=== PATIENT | male | born 1970 | race Two or more races ===

== ENCOUNTER 2016-08-18 22:57 | Emergency (ER) | payer SELFPAY ==
[2016-08-18] MEDS ORDERED: NS 0.9% 1000 ML* 2,000 ML IV ONE (23:43)
[2016-08-18] MEDS ORDERED: Ketorolac INJ* 30 MG/ML 1 ML VIAL IV ONE (23:43)
[2016-08-18 23:54] LABS: Hematocrit 45 % (42-52); Mean Corpuscular HGB Conc 33 g/dl (31-36); Mean Corpuscular Hemoglobin 31 pg (27-31); Mean Corpuscular Volume 94 fL (80-94); Mean Platelet Volume 9 um3 (7.4-10.4); Red Blood Count 4.79 10^6/ul (4.0-5.4); Red Cell Distribution Width 13 % (10.5-15); White Blood Count 18.1 10^3/ul (3.5-10.8)
[2016-08-19 00:05] LABS: ALT 26 U/L (7-52); Albumin 4.1 g/dL (3.2-5.2); Alkaline Phosphatase 65 U/L (34-104); Blood Urea Nitrogen 14 mg/dL (6-24); C Reactive Protein 3.17 mg/L (< 5.00); CO2 Carbon Dioxide 24 mmol/L (22-32); Calcium 9.3 mg/dL (8.6-10.3); Chloride 100 mmol/L (101-111); Globulin 3.2 g/dL (2-4); Glucose 147 mg/dL (70-100); Sodium 133 mmol/L (133-145); Total Protein 7.3 g/dL (6.4-8.9)
--- NOTE | 2016-08-19 00:50 | ED ---
Back Pain - HPI Summary HPI Summary: Patient is [place] he presents with a friend to interpret for him. He began to have severe left flank pain tonight at 1830. He has a history of kidney stones. He denies fever, blood in his urine or trauma. Yesterday he felt completely normal. He feels nauseous and has vomited from the pain. He denies abdominal pain, but has had pain down into his left groin intermittently. No pain with urination. He is extremely uncomfortable and weeping during exam. - History of Current Complaint Chief Complaint: EDFlankPain Stated Complaint: LEFT FLANK PAIN Time Seen by Provider: 08/18/16 23:21 Hx Obtained From: Building Carpenter Helper Onset/Duration: Sudden Onset Onset/Duration: Started Hours Ago Timing: Constant Back Pain Location: Is Discrete @ - left flank and left groin Severity Initially: Severe Severity Currently: Severe Pain Intensity: 9 Character: Sharp, Aching Aggravating Symptom(s): Movement Alleviating Symptom(s): Nothing Associated Signs And Symptoms: Positive: Flank Pain Related History: Similar Episode Dx As - Allergies/Home Medications Allergies/Adverse Reactions: Allergies Allergy/AdvReac Type Severity Reaction Status Date / Time No Known Allergies Allergy Verified 08/18/16 23:18 PMH/Surg Hx/FS Hx/Imm Hx History: Reports: Hx Kidney Stones Infectious Disease History: No Infectious Disease History: Denies: Traveled Outside the [place] in Last 30 Days - Family History Known Family History: Positive: None - Social History Occupation: Employed Full-time Lives: With Family Alcohol Use: Rare Substance Use Type: Reports: None Smoking Status (MU): Never Smoked Tobacco Review of Systems Negative: Fever, Chills Negative: Abdominal Pain Positive: flank pain - left. Negative: hematuria, incontinence, pain, urgency All Other Systems Reviewed And Are Negative: Yes Physical Exam Triage Information Reviewed: Yes Vital Signs On Initial Exam: Initial Vitals Temp Pulse Resp BP Pulse Ox 98.5 F 84 18 128/78 100 08/18/16 23:00 08/18/16 23:00 08/18/16 23:00 08/18/16 23:00 08/18/16 23:00 Vital Signs Reviewed: Yes Appearance: Positive: Well-Appearing, Well-Nourished, Pain Distress Skin: Positive: Warm, Skin Color Reflects Adequate Perfusion, Dry, Soft Head/Face: Positive: Normal Head/Face Inspection Eyes: Positive: EOMI, DUSTY, Conjunctiva Clear ENT: Positive: Hearing grossly normal Respiratory/Lung Sounds: Positive: Clear to Auscultation, Breath Sounds Present Cardiovascular: Positive: RRR Abdomen Description: Positive: Nontender, Soft, CVA Tenderness (R) - mild, CVA Tenderness (L) Bowel Sounds: Positive: Present Male Genital Exam: Positive: normal genitalia Musculoskeletal: Positive: Strength/ROM Intact. Negative: Edema Left, Edema Right Neurological: Positive: Sensory/Motor Intact, Alert, Oriented to Person Place, Time, NV Bundle Intact Distally Psychiatric: Positive: Normal AVPU Assessment: Alert Diagnostics - Vital Signs Vital Signs Temp Pulse Resp BP Pulse Ox 08/18/16 23:00 98.5 F 84 18 128/78 100 - Laboratory Result Diagrams: 08/18/16 23:35 08/19/16 00:40 Lab Statement: Any lab studies that have been ordered have been reviewed, and results considered in the medical decision making process. - CT No standard instances CT Interpretation: Positive (See Comments) CT Interpretation Completed By: Radiologist - 0.2 cm proximal kidney stone with mild hydronephrosis Back Pain Course/Dx - Diagnoses Differential Diagnosis/HQI/PQRI: Positive: Arthritis, Epidural Abscess, Herniated Disc, Renal Colic, Strain, Sprain Provider Diagnoses: Kidney calculi Discharge - Discharge Plan Condition: Stable Disposition: HOME Prescriptions: Ibuprofen TAB* [Motrin TAB* 600 MG] 600 mg PO Q6H PRN #40 tab PRN Reason: Pain Tamsulosin CAP* [Flomax CAP*] 0.4 mg PO DAILY #7 cap oxyCODONE/Acetamin 5/325 MG* [Percocet 5/325 TAB*] 1 tab PO Q4H PRN #12 tab MDD 6 PRN Reason: Pain Patient Education Materials: Kidney Stones (ED), How to Strain Your Urine (ED) Referrals: Shola Rhodes MD [Medical Doctor] - Additional Instructions: Please take the pain medicine as needed. The Flomax was not covered by the Urgent Rx form, so you can get if the pricing is reasonable. Please call Dr. Rhodes on Saturday for an appointment for evaluation. Use the strainer for your urine to see if your can capture the stone. Return to the emergency department if your symptoms worsen.
[2016-08-19] MEDS ORDERED: oxyCODONE/Acetamin 5/325 MG* TAB PO ONE (01:38)
[2016-08-19] MEDS ORDERED: Tamsulosin CAP* 0.4 MG PO ONE (01:38)
[2016-08-19 01:47] VITALS: BP 123/66
--- NOTE | 2016-08-19 07:26 | RAD ---
CLINICAL HISTORY: Left flank pain COMPARISON: None TECHNIQUE: Multiple contiguous axial CT scans were obtained of the abdomen and pelvis, without intravenous contrast enhancement. Coronal and sagittal multiplanar reformations are submitted for review. Oral contrast was not administered. FINDINGS: The study is limited by the lack of intravenous contrast. This limits evaluation of the solid organs and vasculature. LUNG BASES: The lung bases are clear. LIVER: The liver is normal in shape, size, contour, and attenuation. BILE DUCTS: There is no intrahepatic or extrahepatic biliary dilatation. GALLBLADDER: The gallbladder is normal, without pericholecystic inflammatory change. PANCREAS: The pancreas is normal, without mass or ductal dilatation. SPLEEN: Normal in size and appearance. UPPER GI TRACT: Evaluation of the gastrointestinal tract is limited by incomplete gastric distention. The upper GI tract is unremarkable. SMALL BOWEL AND MESENTERY: The small bowel is normal in contour, course, and caliber. There is no obstruction or dilatation. COLON: The colon is normal in contour, course, caliber. There is no pericolonic inflammatory change. ADRENALS: Normal bilaterally. KIDNEYS: There is a 0.6 cm calculus of the proximal left ureter at the UPJ with mild pelvic caliectasis. There is straightening of the perinephric fat BLADDER: The bladder is smooth in contour. PELVIC ORGANS: The prostate gland is normal. The seminal vesicles are symmetric. AORTA: The aorta is normal. IVC: Unremarkable LYMPH NODES: There is no lymphadenopathy by size criteria. ABDOMINAL WALL: There is no evidence for abdominal wall hernia. BONES AND SOFT TISSUES: There are mild diffuse degenerative changes. OTHER: None IMPRESSION: 0.2 CENTIMETERS PROXIMAL LEFT URETERAL STONE WITH MILD HYDRONEPHROSIS.
== END 2016-08-19 01:50 | disposition home or self-care (01) ==
LOC: ED 22:57
DX: N13.2 Hydronephrosis with renal and ureteral calculous obstruction (principal); R10.84 Generalized abdominal pain
CPT/HCPCS: 36415; 74176; 80053; 85025; 86140; 96361; 96374; 99283; A9270-GY; J1885

== ENCOUNTER 2016-11-17 03:33 | Emergency (ER) | payer SELFPAY ==
[2016-11-17] MEDS ORDERED: Ketorolac INJ* 30 MG/ML 1 ML VIAL IV ONE (04:05)
[2016-11-17] MEDS ORDERED: Ondansetron INJ* 2 MG/ML VIAL IV ONE (04:05)
[2016-11-17] MEDS ORDERED: NS 0.9% 1000 ML* 1,000 ML IV ONE (04:05)
[2016-11-17 04:43] LABS: Urine Bacteria Absent (Absent); Urine Bilirubin Negative (Negative); Urine Glucose Negative (Negative); Urine Nitrite Negative (Negative)
[2016-11-17 04:48] LABS: Hematocrit 43 % (42-52); Hemoglobin 14.6 g/dl (14.0-18.0); Mean Corpuscular HGB Conc 34 g/dl (31-36); Mean Corpuscular Hemoglobin 32 pg (27-31); Mean Corpuscular Volume 94 fL (80-94); Mean Platelet Volume 9 um3 (7.4-10.4); Red Blood Count 4.61 10^6/ul (4.0-5.4); Red Cell Distribution Width 13 % (10.5-15); White Blood Count 8.5 10^3/ul (3.5-10.8)
--- NOTE | 2016-11-17 04:52 | ED ---
Marguerite Colmenares Anna, scribed for Kerwin Morley MD on 11/17/16 at 0405 . GI/ HPI - HPI Summary HPI Summary: Patient is a 46 y/o male coming to [facility] presenting with sudden onset of worsening, constant lower abd pain that began six days ago. He describes the severity of the pain as 8/10. The patient has additionally had difficulty with urination that began last night at 2000. His history is significant for renal calculi. He was seen at [facility] for renal calculi on 08/18/2016. He has not yet met with Dr. Rhodes, urologist. - History of Current Complaint Time Seen by Provider: 11/17/16 03:50 Stated Complaint: LOWER ABD PAIN Hx Obtained From: Patient, Family/Aircraft Engineer - Accompanied by friend, who helped translate Onset/Duration: Started Days Ago, Still Present Timing: Constant, Lasting Days Severity: Moderate Current Severity: Moderate Pain Intensity: 8 - /10 Associated Signs and Symptoms: Positive: Dysuria - Allergy/Home Medications Allergies/Adverse Reactions: Allergies Allergy/AdvReac Type Severity Reaction Status Date / Time No Known Allergies Allergy Verified 11/17/16 04:03 Home Medications: Home Medications Tamsulosin HCl [Flomax] 0.4 mg PO DAILY PRN 11/17/16 [History Confirmed 11/17/16 ] PMH/Surg Hx/FS Hx/Imm Hx Previously Healthy: Yes Cardiovascular History: Denies: Hx Myocardial Infarction History: Reports: Hx Kidney Stones Infectious Disease History: No Infectious Disease History: Denies: Traveled Outside the [place] in Last 30 Days - Family History Known Family History: Negative: Cardiac Disease, Hypertension, Diabetes - Social History Alcohol Use: Rare Substance Use Type: Reports: None Smoking Status (MU): Never Smoked Tobacco Review of Systems Positive: Abdominal Pain Positive: dysuria All Other Systems Reviewed And Are Negative: Yes Physical Exam Triage Information Reviewed: Yes Vital Signs On Initial Exam: Initial Vitals Temp Pulse Resp BP Pulse Ox 98.1 F 84 16 114/63 99 11/17/16 03:35 11/17/16 03:35 11/17/16 03:35 11/17/16 03:35 11/17/16 03:35 Vital Signs Reviewed: Yes Appearance: Positive: Well-Appearing, Pain Distress - mild discomfort Skin: Positive: Warm Eyes: Positive: DUSTY ENT: Positive: Hearing grossly normal Neck: Positive: Supple Respiratory/Lung Sounds: Positive: Clear to Auscultation, Breath Sounds Present Cardiovascular: Positive: RRR Abdomen Description: Positive: Nontender, No Organomegaly, Soft. Negative: CVA Tenderness (R), CVA Tenderness (L) Bowel Sounds: Positive: Present Musculoskeletal: Positive: Strength/ROM Intact Neurological: Positive: Sensory/Motor Intact, Alert, Oriented to Person Place, Time Psychiatric: Positive: Affect/Mood Appropriate Diagnostics - Vital Signs Vital Signs Temp Pulse Resp BP Pulse Ox 11/17/16 04:00 77 109/69 98 11/17/16 03:56 98 F 76 16 109/69 97 11/17/16 03:49 83 98 11/17/16 03:47 114/63 11/17/16 03:35 98.1 F 84 16 114/63 99 - Laboratory Lab Results: Lab Results 11/17/16 11/17/16 Range/Units 03:46 04:09 WBC 8.5 (3.5-10.8) 10^3/ul RBC 4.61 (4.0-5.4) 10^6/ul Hgb 14.6 (14.0-18.0) g/dl Hct 43 (42-52) % MCV 94 (80-94) fL MCH 32 H (27-31) pg MCHC 34 (31-36) g/dl RDW 13 (10.5-15) % Plt Count 213 (150-450) 10^3/ul MPV 9 (7.4-10.4) um3 Neut % (Auto) 64.1 (38-83) % Lymph % (Auto) 26.5 (25-47) % [place] % (Auto) 4.8 (1-9) % Eos % (Auto) 4.2 (0-6) % Baso % (Auto) 0.4 (0-2) % Absolute Neuts (auto) 5.4 (1.5-7.7) 10^3/ul Absolute Lymphs (auto) 2.2 (1.0-4.8) 10^3/ul Absolute Monos (auto) 0.4 (0-0.8) 10^3/ul Absolute Eos (auto) 0.4 (0-0.6) 10^3/ul Absolute Basos (auto) 0 (0-0.2) 10^3/ul Absolute Nucleated RBC 0.01 10^3/ul Nucleated RBC % 0.1 Urine Color Yellow Urine Appearance Clear Urine pH 5.0 (5-9) Ur Specific [place] 1.018 (1.010-1.030) Urine Protein Negative (Negative) Urine Ketones Negative (Negative) Urine Blood 1+ H (Negative) Urine Nitrate Negative (Negative) Urine Bilirubin Negative (Negative) Urine Urobilinogen Negative (Negative) Ur Leukocyte Esterase Trace H (Negative) Urine WBC (Auto) Trace(0-5/hpf) (Absent) Urine RBC (Auto) Trace(0-2/hpf) (Absent) Urine Bacteria Absent (Absent) Urine Glucose Negative (Negative) Result Diagrams: 11/17/16 04:09 11/17/16 04:09 Lab Statement: Any lab studies that have been ordered have been reviewed, and results considered in the medical decision making process. - CT CT abd/pel CT Interpretation: Positive (See Comments) CT Interpretation Completed By: Radiologist - IMPRESSION: 3 mm stone at left UVJ causing minimal hydronephrosis. Unremarkable pancreas and gallbladder. No bowel obstruction, colitis, free fluid, or free air. Normal appendix. Irregular pericardiac fat pad more likely than pneumomediastinum. Re-Evaluation - Re-Evaluation First Eval Re-Evaluation Time: 05:48 Change: Improved Comment: Discussed results and plan of care with patient and friend. Patient and friend are agreeable with plan. GIGU Course/Dx - Course Assessment/Plan: Patient is a 46 y/o male coming to [facility] presenting with sudden onset of worsening, constant lower abd pain that began six days ago. He describes the severity of the pain as 8/10. The patient has additionally had difficulty with urination that began last night at 1999. His history is significant for renal calculi. He was seen at [facility] for renal calculi on 2016. He has not yet met with Dr. Rhodes, urologist. The patient was given Toradol and Zofran in the ED course. UA reveals 1+ blood and trace leukocyte esterase. Labs reveal MCH of 32, BUN/Creatinine ratio of 102, and glucose of 102. CT abd/pel reveals a 3 mm stone at left UVJ causing minimal hydronephrosis. Unremarkable pancreas and gallbladder. No bowel obstruction, colitis, free fluid, or free air. Normal appendix. Irregular pericardiac fat pad more likely than pneumomediastinum. Patient will be discharged with follow up from urology and primary care physician. Patient is agreeable with plan. - Diagnoses Provider Diagnoses: Renal calculi Discharge - Discharge Plan Condition: Stable Disposition: HOME Patient Education Materials: Kidney Stones (ED) Referrals: [facility] REFERRAL [Outside] Shola Rhodes MD [Medical Doctor] - Additional Instructions: Follow up with urology and your primary care provider within 48 hours. Return to the Emergency Department for new or worsening symptoms. The documentation as recorded by the Marguerite aguiar Anna accurately reflects the service I personally performed and the decisions made by me, Kerwin Morley MD.
[2016-11-17 05:08] LABS: BUN/Creatinine Ratio 20.2 (8-20); Calcium 9.2 mg/dL (8.6-10.3); EGFR African American 105.6 (>60); EGFR Non-African American 82.1 (>60); Globulin 2.9 g/dL (2-4); Total Bilirubin 0.4 mg/dL (0.2-1.0); Total Protein 6.9 g/dL (6.4-8.9)
[2016-11-17 05:13] LABS: Potassium 3.7 mmol/L (3.5-5.0)
[2016-11-17] MEDS ORDERED: oxyCODONE/Acetamin 5/325 MG* TAB PO ONE (05:48)
[2016-11-17 05:56] VITALS: BP 110/68
--- NOTE | 2016-11-17 07:06 | RAD ---
INDICATION: Flank pain COMPARISON: CT August 19, 2016 TECHNIQUE: Noncontrast axial source images were acquired from the level hemidiaphragms to the symphysis pubis as part of CT imaging for renal stone. Lung bases: The lung bases are clear. There is believed to be a small amount of air trapped under the left pericardial fat pad, less likely pneumomediastinum Liver: The liver is normal in size. Noncontrast imaging shows no evidence of a hepatic mass or ductal dilatation. Gallbladder: There are no calcified gallstones. There is no evidence of wall thickening or pericholecystic fluid.. Spleen: The spleen is normal in size. The noncontrast CT appearance is normal. Pancreas: Noncontrast imaging shows no pancreatic mass or ductal dilitation. Adrenal glands: No masses are identified. Kidneys/Bladder: There is a 3 mm left UVJ calculus producing mild obstructive findings There is no other evidence of nephrolithiasis. Noncontrast imaging shows no evidence of a renal mass. The bladder is unremarkable.. Adenopathy: There is no evidence of intraperitoneal or retroperitoneal adenopathy. Evaluation is limited without oral contrast. Fluid collections: There are no free or localized fluid collections. Vessels: The aorta and iliac vessels are normal in caliber. There are no significant atherosclerotic changes. The IVC appears normal Pelvic organs: The prostate and seminal vesicles appear normal GI tract: Evaluation of the bowel is limited without oral contrast. The stomach, small bowel, and lower GI tract appear grossly normal. There are no obstructive findings. The appendix is visualized and appears normal. Soft tissues: No soft tissue abnormalities of the extraperitoneal abdomen or pelvis are identified. Osseous structures: There are no acute osseous findings. IMPRESSION: 3 MM LEFT UVJ CALCULUS WITH MILD OBSTRUCTIVE FINDINGS. SUSPECT TINY FOCUS OF AIR TRAPPED ADJACENT TO LEFT PERICARDIAL FAT PAD, LESS LIKELY PNEUMOMEDIASTINUM.
== END 2016-11-17 05:54 | disposition home or self-care (01) ==
LOC: ED 03:33
DX: N20.0 Calculus of kidney (principal); R10.30 Lower abdominal pain, unspecified; R30.0 Dysuria
CPT/HCPCS: 36415; 74176; 80053; 81003; 81015; 85025; 87086; 96374; 96375; 99284; A9270-GY; J1885; J2405